=== PATIENT | female | born 2000 | race Two or more races ===

== ENCOUNTER 2022-09-05 12:04 | Emergency (ER) | payer SELFPAY ==
[~2022-09-05] VITALS: Ht 160 cm; Wt 64.2 kg
[2022-09-05] MEDS ORDERED: KETOROLAC TROMETH 60MG/2ML VIAL IM ONE (14:15)
[2022-09-05] MEDS ORDERED: HYDROcodone-ACET 5/325MG TAB PO ONE (14:15)
[2022-09-05] MEDS ORDERED: HYDR-4902 PO (15:03)
[2022-09-05] MEDS ORDERED: AMOX-277 PO (15:03)
[2022-09-05] MEDS ORDERED: IBUP800T26 PO (15:03)
[2022-09-05 15:08] VITALS: BP 103/70
== END 2022-09-05 15:20 | disposition home or self-care (01) ==
LOC: ER 12:04
DX: K04.7 Periapical abscess without sinus (principal)
CPT/HCPCS: 96372; 99283; J1885